=== PATIENT | male | born 1955 | race Hispanic/Latino ===

== ENCOUNTER → 2020-03-04 | Day surgery (SDC) | payer MEDICARE ==
[~2020-03-04] MED LIST: ASPIRIN81 MG PO; CALCIUM CARBON650 MG PO; CARVEDILOL3.125 MG PO; EPHEDRINE SULFATE INJ 50 MG/ML VIAL ONE; FENTANYL CITRATE/PF 100MCG/2 ML INJ ONE; FLOMAX0.4 MG PO; GLUCAGON FOR INJ 1 MG VIAL ONE; HUMALOG100 UNIT/3 SC; HYDRALAZINE HCL50 MG PO; HYOSCYAMINE 0.125 MG TAB ONE; LANTUS 3ML100 UNITS/ SC; LIDOCAINE HCL 2% LOCAL INJ 5 ML SDV VIAL INJ ONE; MIDAZOLAM HCL 2 MG/2 ML VIAL ONE; MYFORTIC180 MG PO; PREDNISONE5 MG PO; PROCARDIA XL30 MG PO; PROPOFOL IV EMULSION 10 MG/ML 20 ML VIAL ONE; TACROLIMUS1 MG PO
[2020-03-04 11:31] VITALS: BP 139/41
[2020-03-04 12:05] LABS: % IRON SATURATION 26 % (15-50); IRON 79 ug/dL (65-175); TOTAL IRON BINDING CAPACITY 309 ug/dL (261-478); TRANSFERRIN 221 mg/dL (174-364)
== END | disposition home or self-care (01) ==
LOC: OR 07:13
PROVIDERS: ATTEND Internal Medicine Gastroenterology
DX: D64.89 Other specified anemias (principal); D12.2 Benign neoplasm of ascending colon; D12.3 Benign neoplasm of transverse colon; K29.80 Duodenitis without bleeding; K29.70 Gastritis, unspecified, without bleeding; K22.10 Ulcer of esophagus without bleeding; K44.9 Diaphragmatic hernia without obstruction or gangrene; K31.89 Other diseases of stomach and duodenum; K64.8 Other hemorrhoids; I10 Essential (primary) hypertension; E11.9 Type 2 diabetes mellitus without complications; K21.9 Gastro-esophageal reflux disease without esophagitis; Z94.0 Kidney transplant status; Z01.810 Encounter for preprocedural cardiovascular examination; Z01.812 Encounter for preprocedural laboratory examination; Z11.59 Encounter for screening for other viral diseases; Z79.82 Long term (current) use of aspirin; Z79.4 Long term (current) use of insulin; Z99.2 Dependence on renal dialysis; Z98.890 Other specified postprocedural states; Z68.27 Body mass index [BMI] 27.0-27.9, adult
CPT/HCPCS: 36415; 43239; 45380; 45385; 82607; 82746; 82948; 83540; 84466; 85045; 88305; 88312; 93005; J1610; J2001; J2250; J2704; J3010; U0002; 45378; 45384